=== PATIENT | male | born 1950 | race African-American/Black ===

== ENCOUNTER 2018-12-19 11:07 | Observation (INO) | payer MEDICARE, OTHER ==
[2018-12-19] MEDS ORDERED: ASPIRIN 81 MG CHEWABLE TABLET ONE (11:42)
[2018-12-19] MEDS ORDERED: FENTANYL CITR 100 MCG/2 ML ONE (11:42)
[2018-12-19] MEDS ORDERED: ONDANSETRON 4 MG/2 ML VIAL ONE (11:42)
[2018-12-19] MEDS ORDERED: NITROGLYCERIN 0.4 MG/TAB SL ONE (11:43)
[2018-12-19 11:44] LABS: Protime INR 1.08
[2018-12-19 11:46] LABS: Absolute Lymphocytes (CBC) 2.4 K/uL (0.7-4.9); Absolute Monocytes 0.8 K/uL (0.1-1.3); Absolute Neutrophil 7.5 K/uL (1.8-8.0); Basophils % 0.6 % (0-1.3); Eosinophils % 1.5 % (0-4.4); Hematocrit 44.4 % (39.6-49.0); MPV 7.3 fL (7.6-11.3); Monocytes % 7.6 % (3.3-12.3); RBC Red Blood Cell Count 5.07 M/uL (4.33-5.43)
--- NOTE | 2018-12-19 11:51 | RAD REPORT ---
EXAM DESCRIPTION: RAD - Chest Single View - 12/19/2018 11:43 am CLINICAL HISTORY: CHEST PAIN Chest pain. COMPARISON: CHEST SINGLE VIEW dated 03/20/2011; CHEST SINGLE VIEW dated 03/19/2011; CHEST PA AND LAT 2 VIEW dated 06/10/2004 FINDINGS: Portable technique limits examination quality. Mild interstitial pulmonary edema is present. The heart is normal in size. No displaced fractures.
[2018-12-19 12:04] LABS: ALT/SGPT 33 U/L (12-78); AST/SGOT 24 U/L (15-37); Albumin 3.6 g/dL (3.4-5.0); Alkaline Phosphatase 73 U/L (45-117); BUN Blood Urea Nitrogen 12 mg/dL (7-18); Bicarbonate 28 mmol/L (21-32); Bilirubin Direct 0.2 mg/dL (0-0.2); Bilirubin Total 0.8 mg/dL (0.2-1.0); Glucose Level 118 mg/dL (74-106); Magnesium 2.1 mg/dL (1.8-2.4); NT PRO-BNP 102 pg/mL (<125); Potassium 3.9 mmol/L (3.5-5.1); Protein, Total 7.8 g/dL (6.4-8.2); Sodium Level 140 mmol/L (136-145); Troponin (Emerg Dept Use Only) < 0.02 ng/mL (0.0-0.045)
--- NOTE | 2018-12-19 12:33 | RAD REPORT ---
EXAM DESCRIPTION: CT - Chest For Pe Angio - 12/19/2018 12:27 pm CLINICAL HISTORY: Chest pain. Chest pain;Dyspnea COMPARISON: No comparisons TECHNIQUE: CT angiogram of the pulmonary arteries was performed with MIP. All CT scans are performed using dose optimization technique as appropriate and may include automated exposure control or mA/KV adjustment according to patient size. FINDINGS: No evidence of pulmonary thromboembolism. No acute aortic finding demonstrated. The lungs are clear. No significant pericardial or pleural fluid. No concerning bony finding. IMPRESSION: No evidence of pulmonary thromboembolism. No acute lung findings.
[2018-12-19] MEDS ORDERED: PROMETHAZINE 25 MG/ML VIAL ONE (12:55)
--- NOTE | 2018-12-19 13:12 | RAD REPORT ---
EXAM DESCRIPTION: CT - Head Brain Wo Cont - 12/19/2018 1:04 pm CLINICAL HISTORY: DIZZINESS Headache, drowsiness COMPARISON: Head Brain Wo Cont dated 07/22/2017 TECHNIQUE: All CT scans are performed using dose optimization technique as appropriate and may inclu de automated exposure control or mA/KV adjustment according to patient size. FINDINGS: Intravascular contrast is noted from recent CT chest study, significantly limiting quality of study in detection of subarachnoid blood. Within this limitation, no hemorrhage, hydrocephalus or extra-axial fluid collection is suspected.No areas of brain edema or evidence of midline shift. The paranasal sinuses and mastoids are clear. The calvarium is intact. IMPRESSION: No acute intracranial abnormality is suspected within the above detailed limitations.
--- NOTE | 2018-12-19 13:13 | EDPHYS ---
Physician Documentation [facility] Name: Franck Espana Sr Age: 68 yrs Sex: Male : 1950 Arrival Date: 12/19/2018 Time: 11:11 Bed 5 Private MD: Jean Pierre Rincon T ED Physician Shayne Ngo HPI: 12/19 12:22 This 68 yrs old Black Male presents to ER via Ambulatory with complaints of Chest Pain, jr8 Arm Pain. 12:22 The patient or guardian reports chest pain that is located primarily in the anterior jr8 chest wall, left. Onset: acutely, yesterday. The pain radiates to the left arm. Associated signs and symptoms: Pertinent positives: nausea. The chest pain is described as stabbing. Duration: The patient or guardian reports a single episode, that is still ongoing. Modifying factors: The symptoms are alleviated by nothing. the symptoms are aggravated by nothing. Severity of pain: At its worst the pain was moderate in the emergency department the pain is unchanged. The patient has not experienced similar symptoms in the past. The patient has not recently seen a physician. Historical: - Allergies: 11:27 No Known Allergies; bp - Home Meds: 11:27 Cardizem Oral [Active]; bp - PMHx: 11:27 hiatal hernia; Hypertension; bp - Immunization history:: Adult Immunizations up to date. - Social history:: Smoking status: Patient/guardian denies using tobacco. - Ebola Screening: : Patient negative for fever greater than or equal to 101.5 degrees Fahrenheit, and additional compatible Ebola Virus Disease symptoms Patient denies exposure to infectious person Patient denies travel to an Ebola-affected area in the 21 days before illness onset No symptoms or risks identified at this time. ROS: 12:22 Eyes: Negative for injury, pain, redness, and discharge, ENT: Negative for injury, jr8 pain, and discharge, Neck: Negative for injury, pain, and swelling, Respiratory: Negative for shortness of breath, cough, wheezing, and pleuritic chest pain, Abdomen/GI: Negative for abdominal pain, nausea, vomiting, diarrhea, and constipation, Back: Negative for injury and pain, MS/Extremity: Negative for injury and deformity, Skin: Negative for injury, rash, and discoloration, Neuro: Negative for headache, weakness, numbness, tingling, and seizure. 12:22 Cardiovascular: Positive for chest pain, Negative for edema, orthopnea, palpitations, paroxysmal nocturnal dyspnea. Exam: 12:22 Head/Face: Normocephalic, atraumatic. Eyes: Pupils equal round and reactive to light, jr8 extra-ocular motions intact. Lids and lashes normal. Conjunctiva and sclera are non-icteric and not injected. Cornea within normal limits. Periorbital areas with no swelling, redness, or edema. ENT: Nares patent. No nasal discharge, no septal abnormalities noted. Tympanic membranes are normal and external auditory canals are clear. Oropharynx with no redness, swelling, or masses, exudates, or evidence of obstruction, uvula midline. Mucous membranes moist. Neck: Trachea midline, no thyromegaly or masses palpated, and no cervical lymphadenopathy. Supple, full range of motion without nuchal rigidity, or vertebral point tenderness. No Meningismus. Chest/axilla: Normal chest wall appearance and motion. Nontender with no deformity. No lesions are appreciated. Cardiovascular: Regular rate and rhythm with a normal S1 and S2. No gallops, murmurs, or rubs. Normal PMI, no JVD. No pulse deficits. Respiratory: Lungs have equal breath sounds bilaterally, clear to auscultation and percussion. No rales, rhonchi or wheezes noted. No increased work of breathing, no retractions or nasal flaring. Abdomen/GI: Soft, non-tender, with normal bowel sounds. No distension or tympany. No guarding or rebound. No evidence of tenderness throughout. Back: No spinal tenderness. No costovertebral tenderness. Full range of motion. Skin: Warm, dry with normal turgor. Normal color with no rashes, no lesions, and no evidence of cellulitis. MS/ Extremity: Pulses equal, no cyanosis. Neurovascular intact. Full, normal range of motion. Neuro: Awake and alert, GCS 15, oriented to person, place, time, and situation. Cranial nerves II-XII grossly intact. Motor strength 5/5 in all extremities. Sensory grossly intact. Cerebellar exam normal. Normal gait. 12:22 ECG was reviewed by the Attending Physician. Vital Signs: 11:27 BP 146 / 101; Pulse 65; Resp 16; Temp 98; Pulse Ox 96% ; Weight 132.45 kg; Height 5 ft. bp 11 in. (180.34 cm); 11:59 BP 139 / 101; Pulse 77; Resp 18; Pulse Ox 95% on R/A; hj 12:44 BP 158 / 96; Pulse 65; Resp 18; Pulse Ox 94% on R/A; hj 13:28 BP 163 / 95; Pulse 73; Resp 18; Pulse Ox 100% on 2 lpm NC; hj 13:38 BP 143 / 99; Pulse 72; Resp 18; Pulse Ox 100% on 2 lpm NC; hj 14:25 BP 155 / 90; Pulse 73; Resp 18; Pulse Ox 96% on 2 lpm NC; hj 11:27 Body Mass Index 40.73 (132.45 kg, 180.34 cm) bp MDM: 11:14 Patient medically screened. jr8 13:09 The patient was given aspirin in the Emergency Department. Data reviewed: vital signs, jr8 nurses notes, lab test result(s), EKG, radiologic studies, CT scan, plain films. Data interpreted: Pulse oximetry: on room air is 96 %. Interpretation: normal. Counseling: I had a detailed discussion with the patient and/or guardian regarding: the historical points, exam findings, and any diagnostic results supporting the discharge/admit diagnosis, lab results, radiology results, the need for further work-up and treatment in the hospital. Physician consultation: Grayson Vizcarra MD was called at 13:12, was contacted at 13:12, regarding admission, to the telemetry unit. consult, patient's condition, and will see patient in ED. 13:13 ED course: Still unable to reproduce chest pain that patient was having. No abdominal jr8 tenderness noted as well. Patient had vomited twice and still looks uncomfortable but stated that he feels better. Recommended observation in hospital since we cannot fully r/o cardiac causes at this point. Patient good with this . 12/19 11:15 Order name: Basic Metabolic Panel; Complete Time: 12:11 jr8 12/19 11:15 Order name: CBC with Diff; Complete Time: 12:11 jr8 12/19 11:15 Order name: LFT's; Complete Time: 12:11 jr8 12/19 11:15 Order name: Magnesium; Complete Time: 12:11 jr8 12/19 11:15 Order name: NT PRO-BNP; Complete Time: 12:12/19 11:15 Order name: PT-INR; Complete Time: 12:12/19 11:15 Order name: Troponin (emerg Dept Use Only); Complete Time: 12:12/19 11:15 Order name: XRAY Chest (1 view); Complete Time: 12:12/19 12:12 Order name: CT Chest For PE Angio; Complete Time: 12:34 12/19 12:42 Order name: CT Head Brain wo Cont; Complete Time: 13:14 12/19 11:15 Order name: EKG; Complete Time: 11:12/19 11:15 Order name: Cardiac monitoring; Complete Time: 12/19 11:15 Order name: EKG - Nurse/Tech; Complete Time: 12/19 11:15 Order name: IV Saline Lock; Complete Time: :12/19 11:15 Order name: Labs collected and sent; Complete Time: 12/19 11:15 Order name: O2 Per Protocol; Complete Time: 12/19 11:15 Order name: O2 Sat Monitoring; Complete Time: EC:22 Rate is 63 beats/min. Rhythm is regular, Normal Sinus Rhythm. QRS [place] is Normal. [place] jr8 interval is normal at 174 msec. QRS interval is normal at 92 msec. QT interval is normal at 425 msec. No Q waves. T waves are Normal. No ST changes noted. Clinical impression: Normal ECG and No evidence of ischemia. Interpreted by me. Reviewed by me. Administered Medications: 11: Drug: Aspirin Chewable Tablet 324 mg Route: PO; hj 11:57 Follow up: Response: No adverse reaction hj 11: Drug: fentaNYL (PF) 25 mcg Route: IVP; Site: right forearm; hj 11:57 Follow up: Response: No adverse reaction hj 11: Drug: Zofran 4 mg Route: IVP; Site: right forearm; hj 11:57 Follow up: Response: No adverse reaction; Nausea is decreased hj 11: Drug: Nitroglycerin 0.4 mg Route: Sublingual; hj 11:57 Follow up: Response: No adverse reaction; Pain is decreased hj 12:47 Drug: Promethazine 12.5 mg Route: IVP; Site: left antecubital; bp 13:27 Follow up: Response: No adverse reaction; Nausea is decreased hj Disposition: 12/19/18 13:13 Hospitalization ordered by Grayson Vizcarra for Observation. Preliminary diagnosis is Chest pain, unspecified. - Bed requested for Telemetry/MedSurg (observation). - Status is Observation. hj - Condition is Stable. - Problem is new. - Symptoms have improved. UTI on Admission? No Addendum: 12/22/2018 00:12 Co-signature as Attending Physician, Shayne Ngo MD. g s Signatures: Dispatcher [employer] EDMS Servando Borrero PA PA jr8 Karl Machuca, RN RN Shayne Laureano MD MD gs Peltier, Brian, RN RN Roselia Yee Corrections: (The following items were deleted from the chart) 12/19 14:23 13:13 Hospitalization Ordered by Grayson Vizcarra MD for Observation. Preliminary diagnosis eb is Chest pain, unspecified. Bed requested for Telemetry/MedSurg (observation). Status is Observation. Condition is Stable. Problem is new. Symptoms have improved. UTI on Admission? No. jr8 15:04 14:23 12/19/2018 13:13 Hospitalization Ordered by Grayson Vizcarra MD for Observation. hj Preliminary diagnosis is Chest pain, unspecified. Bed requested for Telemetry/MedSurg (observation). Status is Observation. Condition is Stable. Problem is new. Symptoms have improved. UTI on Admission? No. eb
--- NOTE | 2018-12-19 13:13 | ER ---
Nurse's Notes [facility] Name: Franck Espana Sr Age: 68 yrs Sex: Male : 1950 Arrival Date: 12/19/2018 Time: 11:11 Bed 5 Private MD: Jean Pierre Rincon T Diagnosis: Chest pain, unspecified Presentation: 12/19 11:15 Presenting complaint: Patient states: LEFT SHOULDER PAIN, LEFT CHEST PAIN, LEFT ARM bp PAIN WITH NAUSEA/VOMITING SINCE Y/D AM. Transition of care: patient was not received from another setting of care. Onset of symptoms was December 18, 2018 at 08:00. Risk Assessment: Do you want to hurt yourself or someone else? Patient reports no desire to harm self or others. Initial Sepsis Screen: Does the patient meet any 2 criteria? No. Patient's initial sepsis screen is negative. Does the patient have a suspected source of infection? No. Patient's initial sepsis screen is negative. Care prior to arrival: None. 11:15 Method Of Arrival: Ambulatory bp 11:15 Acuity: DELORIS 2 bp Triage Assessment: 11:27 General: Appears in no apparent distress. uncomfortable, Behavior is cooperative, bp appropriate for age, anxious. Pain: Complains of pain in left trapezius, left scapular area, left supraclavicular area, left clavicle, anterior aspect of left upper chest, left breast and anterior aspect of left shoulder. EENT: No deficits noted. Neuro: Level of Consciousness is awake, alert, obeys commands, Oriented to person, place, time, situation, Appropriate for age. Cardiovascular: Rhythm is sinus rhythm. Respiratory: No deficits noted. Airway is patent Respiratory effort is even, unlabored, Respiratory pattern is regular, symmetrical. GI: Reports nausea, vomiting. : No signs and/or symptoms were reported regarding the genitourinary system. Derm: No deficits noted. Musculoskeletal: Circulation, motion, and sensation intact. Range of motion: intact in all extremities. Historical: - Allergies: 11:27 No Known Allergies; bp - Home Meds: 11: Cardizem Oral [Active]; bp - PMHx: 11:27 hiatal hernia; Hypertension; bp - Immunization history:: Adult Immunizations up to date. - Social history:: Smoking status: Patient/guardian denies using tobacco. - Ebola Screening: : Patient negative for fever greater than or equal to 101.5 degrees Fahrenheit, and additional compatible Ebola Virus Disease symptoms Patient denies exposure to infectious person Patient denies travel to an Ebola-affected area in the 21 days before illness onset No symptoms or risks identified at this time. Screenin:30 Abuse screen: Denies threats or abuse. Denies injuries from another. Nutritional bp screening: No deficits noted. Tuberculosis screening: No symptoms or risk factors identified. Fall Risk None identified. Assessment: 11:30 General: SEE TRIAGE NOTE. bp 11:30 Pain: Pain radiates to left arm and back and anterior aspect of left shoulder and left hj breast Pain began 1 day ago. 12:57 Reassessment: PT TO CT WITH RN INTAKE. bp 13:28 Reassessment: Patient and/or family updated on plan of care and expected duration. Pain hj level reassessed. Patient is alert, oriented x 3, equal unlabored respirations, skin warm/dry/pink. awaiting room placement;. Vital Signs: 11:27 BP 146 / 101; Pulse 65; Resp 16; Temp 98; Pulse Ox 96% ; Weight 132.45 kg; Height 5 ft. bp 11 in. (180.34 cm); 11:59 BP 139 / 101; Pulse 77; Resp 18; Pulse Ox 95% on R/A; hj 12:44 BP 158 / 96; Pulse 65; Resp 18; Pulse Ox 94% on R/A; hj 13:28 BP 163 / 95; Pulse 73; Resp 18; Pulse Ox 100% on 2 lpm NC; hj 13:38 BP 143 / 99; Pulse 72; Resp 18; Pulse Ox 100% on 2 lpm NC; hj 14:25 BP 155 / 90; Pulse 73; Resp 18; Pulse Ox 96% on 2 lpm NC; hj 11:27 Body Mass Index 40.73 (132.45 kg, 180.34 cm) bp ED Course: 11:11 Patient arrived in ED. mr 11:11 Jean Pierre Rincon MD is Private Physician. mr 11:14 Servando Borrero [facility]. jr8 11:14 Shayne Ngo MD is Attending Physician. jr8 11:19 Karl Machuca, RENAY is Primary Nurse. hj 11:26 Triage completed. bp 11:27 Arm band placed on. bp 11:30 Patient has correct armband on for positive identification. Placed in gown. Bed in low bp position. Call light in reach. Side rails up X2. quality assurance monitor body on. Pulse ox on. NIBP on. 11:30 Inserted saline lock: 22 gauge in right forearm, using aseptic technique. Blood bp collected. Patient maintains SpO2 saturation greater than 95% on room air. 11:31 EKG done, by computer tech. reviewed by Servando ESPINOSA. at1 11:38 X-ray completed. Portable x-ray completed in exam room. jr1 11:43 XRAY Chest (1 view) In Process Unspecified. EDMS 12:27 CT Chest For PE Angio In Process Unspecified. EDMS 13:03 CT Head Brain wo Cont In Process Unspecified. EDMS 13:12 Grayson Vizcarra MD is Hospitalizing Provider. jr8 15:03 No provider procedures requiring assistance completed. Patient admitted, IV remains in hj place. intact. Administered Medications: 11:27 Drug: Aspirin Chewable Tablet 324 mg Route: PO; hj 11:57 Follow up: Response: No adverse reaction hj 11:27 Drug: fentaNYL (PF) 25 mcg Route: IVP; Site: right forearm; hj 11:57 Follow up: Response: No adverse reaction hj 11:27 Drug: Zofran 4 mg Route: IVP; Site: right forearm; hj 11:57 Follow up: Response: No adverse reaction; Nausea is decreased hj 11:27 Drug: Nitroglycerin 0.4 mg Route: Sublingual; hj 11:57 Follow up: Response: No adverse reaction; Pain is decreased hj 12:47 Drug: Promethazine 12.5 mg Route: IVP; Site: left antecubital; bp 13:27 Follow up: Response: No adverse reaction; Nausea is decreased hj Outcome: 13:13 Decision to Hospitalize by Provider. jr8 15:04 Admitted to Tele accompanied by tech, family with patient, via wheelchair, room 416, hj with chart, Report called to RENAY Hugo 15:04 Condition: stable 15:04 Instructed on the need for admit, Demonstrated understanding of instructions, follow-up care. 15:04 Patient left the ED. hj Signatures: Dispatcher [employer] EDSD Erlin Megan DiazMilli jr1 Servando Borrero PA PA jr8 [place], pbx teacher EKG Tat1 Karl Machuca RN RN Nasim Estes RN RN bp Corrections: (The following items were deleted from the chart) 13:39 12:44 BP 158 / 96; Pulse 65bpm; Resp 18bpm; Pulse Ox 96% RA; [facility] 13:39 13:28 BP 163 / 95; Pulse 73bpm; Resp 18bpm; Pulse Ox 100% RA; [facility]
--- NOTE | 2018-12-19 13:27 | EKG ---
Test Date: 2018-12-19 Test Time: 11:16:15 Business Education Professor: TANIA MEASUREMENT RESULTS: Intervals: Rate: 63 WV: 174 QRSD: 92 QT: 416 QTc: 425 [place]: P: 46 WV: 174 QRS: 42 T: 40 INTERPRETIVE STATEMENTS: Normal sinus rhythm Normal ECG Compared to ECG 03/19/2011 08:56:26 Sinus bradycardia no longer present Early repolarization no longer present Electronically Signed On 12-19-18 12:40:08 CDT by Randolph Thayer
[2018-12-19] MEDS ORDERED: NITROGLYCERIN 0.4 MG/TAB SL PRN (14:56)
[2018-12-19] MEDS ORDERED: ACETAMINOPHEN 500 MG TAB PO PRN (14:56)
[2018-12-19 15:31] VITALS: BMI 36.1
[2018-12-19] MEDS: ENOXAPARIN 40 MG/0.4 ML SQ SCH (16:00)
[2018-12-19] MEDS ORDERED: PNEUMOCOCCAL VACCINE 0.5 ML IMVAC ONE (16:00)
[2018-12-19] MEDS: MORPHINE 2 MG/ML SYR IV PRN ×2 (16:05→19:54)
--- NOTE | 2018-12-20 01:43 | HP ---
Date of Admission: 12/19/2018 Chief Complaint: Chest pain. Primary Care Physician: Jean Pierre Rincon MD. Code Status: Full. History Of Present Illness: The patient is a 68-year-old male with past medical history of hypertens ion, obesity, who was in his usual state of health until 2 nights prior to admission when the patient was woken up by chest pain which was left-sided, radiating to his neck, jaw, and left arm. The vanessa ent states he did have some episodes of nausea and vomiting. No diaphoresis or palpitations. The pa tiemadison also reported some numbness and tingling in his left arm. The patient denies any trauma to his arm, shoulder, or chest. No point tenderness. The patient denies any strenuous activity prior to t he episode of chest pain. The patient states that he was unable to get up and walk around. His symp toms have been progressively getting worse. Due to the constant nature of his moderate symptoms, he came into the ER for further evaluation. Upon arrival, his vital signs were stable. His workup init ially revealed a negative cardiac troponin level. EKG did not show any acute changes. White blood c ell count was normal. Imaging studies ruled out any PE. Head CT scan was also done which was negati ve. The patient was then referred for admission. When seen in the ER, he was awake, alert, oriented x3, in some mild distress. Past Medical History: Hypertension. Past Surgical History: The patient had bilateral knee surgeries for torn cartilage and right wrist s urgery. Allergies: NO KNOWN DRUG ALLERGIES. Medications: Cardizem 60 mg daily. Social History: The patient denies any tobacco use. Drinks alcohol socially. No illicit drug use. The patient is active and independent in his activities of daily living. Family History: Positive for diabetes, hypertension, and mother had cancer. Review of Systems: An 11-point system reviewed, negative except as per HPI. Physical Examination: Vital Signs: Blood pressure 146/101, pulse 65, respirations 16, temperature 98, O2 96% on room air. General: Awake, alert, oriented x3, in some mild distress. Elderly male. HEENT: Normocephalic, atraumatic. PERRLA, EOMI. Moist mucous membranes. Oropharynx is clear. Con junctiva is anicteric. Neck: Supple. No JVD. Trachea midline. CV: S1, S2. Regular rate and rhythm. Peripheral pulses present. Respiratory: Clear to auscultation bilaterally. No wheezing or stridor. No use of accessory muscle s. Gastrointestinal: Abdomen is soft, nontender, nondistended. Positive bowel sounds. No guarding or rigidity. Extremities: No clubbing, cyanosis, or edema. No calf tenderness. Neuro: Cranial nerves 2 through 12 intact grossly. No focal neurological deficit. Speech is normal . Sensation is intact to light touch in bilateral upper and lower extremities. Strength is 5/5 in b ilateral upper and lower extremities. Musculoskeletal: No point tenderness. No decreased range of motion of bilateral upper extremities a nd lower extremities. Skin: No rashes. Normal skin turgor. Psych: Mood is okay. Affect is full. Insight and judgment are good. Laboratory Data: INR 1.08. WBC 10.9, H and H 14.8 and 44.4, platelets 225. Sodium 140, potassium 3 .9, chloride 106, CO2 2of 8, BUN 12, creatinine 0.88, glucose 118, calcium 8.4, magnesium 2.1. Tropo pearl less than 0.02. WBC 10.9, H and H 14.8 and 44.4, platelets 225. Imaging Studies: CT angio chest shows no evidence of PE, no acute lung findings. Head CT scans, neg ative for any acute hemorrhage, no acute intracranial abnormality. EKG shows rate of 63 and normal s inus rhythm. Chest x-ray, reviewed personally, shows mild interstitial pulmonary edema present. Hea rt is normal in size. No displaced fractures. Assessment And Plan: A 68-year-old male with 1.Chest pain. The patient had left-sided chest pain with radiation to the left arm, jaw, and neck. Has history of hypertension, fairly well controlled. Does not smoke. No history of premature coron emily artery disease. The patient is still having pain which did improve with nitroglycerin and aspiri n. We will consult Cardiology, obtain echocardiogram, and rule out acute coronary syndrome. 2.Obesity. 3.Essential hypertension, stable. 4.Numbness and tingling of the left upper extremity, may be related to cervical radiculopathy. 5.Hypocalcemia. We will replace and monitor. 6.Deep vein thrombosis prophylaxis with Lovenox. Plan: Admit the patient to Med-Surg, place as observation. KAYLA Voice ID: [id number]
[2018-12-20] MEDS: MORPHINE 2 MG/ML SYR IV PRN ×2 (04:19→10:30)
[2018-12-20 06:11] LABS: Absolute Lymphocytes (CBC) 1.8 K/uL (0.7-4.9); Absolute Monocytes 0.9 K/uL (0.1-1.3); Absolute Neutrophil 6.6 K/uL (1.8-8.0); Basophils % 0.4 % (0-1.3); Eosinophils % 2.6 % (0-4.4); Hematocrit 42.6 % (39.6-49.0); Lymphocytes % 18.9 % (15.3-44.8); MPV 7.6 fL (7.6-11.3); Monocytes % 9.1 % (3.3-12.3)
[2018-12-20 06:30] LABS: BUN Blood Urea Nitrogen 15 mg/dL (7-18); Bicarbonate 28 mmol/L (21-32); Glucose Level 115 mg/dL (74-106); HDL Cholesterol 52 mg/dL (40-60); LDL Cholesterol, Calculated 91 (<130); Potassium 3.8 mmol/L (3.5-5.1); Sodium Level 139 mmol/L (136-145)
[2018-12-20] MEDS ORDERED: ASPIRIN EC 81 MG TAB PO SCH (09:00)
[2018-12-20] MEDS ORDERED: CANDESARTAN CILEXETIL 16 MG PO SCH (09:00)
[2018-12-20] MEDS ORDERED: METOPROLOL TAR 25 MG TAB PO SCH (09:00)
[2018-12-20] MEDS ORDERED: VALSARTAN 80 MG TAB PO SCH (09:00)
[2018-12-20] MEDS ORDERED: LISINOPRIL 10 MG TAB PO SCH (09:00)
[2018-12-20] MEDS: ENOXAPARIN 40 MG/0.4 ML SQ SCH (09:59)
[2018-12-20 11:42] VITALS: BP 122/81; TEMP 98.1
--- NOTE | 2018-12-20 11:42 | RAD REPORT ---
EXAM DESCRIPTION: RAD - C Spine Ap/Lat - 12/20/2018 11:31 am CLINICAL HISTORY: Neck pain FINDINGS: Mild posterior subluxation C4 on C5 with disc space narrowing and osteophytes. No fracture seen. The remainder of the exam unremarkable
[2018-12-20 12:22] VITALS: O2SAT 93
--- NOTE | 2018-12-20 15:48 | ECHO ---
HEIGHT: 6 ft 1 in WEIGHT: 274 lb 0 oz DATE OF STUDY: 12/20/[address]: Grayson Vizcarra MD 2-DIMENSIONAL: YES M.MODE: YES DOPPLER: YES COLOR FLOW: YES TDS: PORTABLE: DEFINITY: BUBBLE STUDY: DIAGNOSIS: CHEST PAIN CARDIAC HISTORY: CATHERIZATION: NO SURGERY: NO PROSTHETIC VALVE: NO PACEMAKER: NO MEASUREMENTS (cm) DIASTOLIC (NORMALS) SYSTOLIC (NORMALS) IVSd 1.1 (0.6-1.2) LA Diam 4.1 (1.9-4.0) LVEF 52% LVIDd 4.2 (3.5-5.7) LVIDs 3.1 (2.0-3.5) %FS 27% LVPWd 1.1 (0.6-1.2) Ao Diam 2.9 (2.0-3.7) 2 DIMENSIONAL ASSESSMENT: RIGHT ATRIUM: NORMAL LEFT ATRIUM: NORMAL RIGHT VENTRICLE: NORMAL LEFT VENTRICLE: NORMAL TRICUSPID VALVE: NORMAL MITRAL VALVE: NORMAL PULMONIC VALVE: NORMAL AORTIC VALVE: NORMAL PERICARDIAL EFFUSION: NONE AORTIC ROOT: NORMAL LEFT VENTRICULAR WALL MOTION: NORMAL DOPPLER/COLOR FLOW: IMPAIRED LEFT VENTRICULAR RELAXATION. COMMENTS: NORMAL TWO DIMENSIONAL ECHOCARDIOGRAM. IMPAIRED LEFT VENTRICULAR RELAXATION. TECHNOLOGIST: MINOO SUAZO
--- NOTE | 2018-12-21 11:03 | CON ---
Date of Consultation: 12/20/2018 Reason For Consultation: Chest pain and arm pain. History Of Present Illness: Mr. Espana is a 68-year-old black male, fairly healthy in general, has a history of hypertension, for which he takes candesartan only. Came in with left chest pain, left arm pain with numbness in his fingers on the left side, that has been going on for approximately a week without any nausea, vomiting, diaphoresis, PND, orthopnea, pedal edema, palpitations, or syncope. Past Medical History: Includes hypertension. Allergies: NONE. Medications: Include candesartan. Review of Systems: Negative. Family History: Negative. Physical Examination: General: He is very pleasant, in no acute distress, continues however to have some left arm pain and left hand numbness. HEENT: Negative. Neck: Supple without any bruit, lymphadenopathy, JVD, or thyromegaly. Chest: Clear to auscultation and percussion. Cardiac: Regular rhythm and rate without any murmurs, gallops, or rubs. Abdomen: Benign. Extremities: No clubbing, cyanosis, or edema. Data Reviewed: His diagnostic data were all within normal limit including a lipid profile. EKG was normal. CT angiogram was normal. CT of his head was normal. Chest x-ray showed possible interstiti al edema. Impression And Plan: Mr. Espana is having atypical chest pain. He is 68-year-old, hypertensive and c ertainly at risk for heart disease. Chest x-ray showed possible mild interstitial edema. I think an echocardiogram is indicated and is pending today. I believe his symptoms however are probably most likely secondary to cervical spondylosis. His symptoms have been going on for 5 days and yet he stil l have a normal EKG and normal troponin. His blood pressure is fairly well controlled. I would cont inue his present regimen and check the echocardiogram. I think if this is normal, he can probably go home. He probably should have a carotid Doppler eventually and a stress test as an outpatient, and he probably should have an MRI of the cervical spine as an outpatient as well if his symptoms persist . I will discuss the case with Dr. Vizcarra. TRUDI/ROBER Voice ID: [id number] Report ID: [id number]
--- NOTE | 2018-12-21 12:03 | DS ---
Date of Discharge: 12/20/2018 Discharge Diagnoses: 1.Chest pain. Acute coronary syndrome ruled out. 2.Obesity, BMI 36.1. 3.Essential hypertension, stable. 4.Numbness and tingling of the left upper extremity secondary to cervical radiculopathy. 5.Hypocalcemia. Consultants: Dr. Marvin with Cardiology. Procedures: None. 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 The pat ient had come in with left-sided pain including into his chest, left arm, also reported some tingling in his arm. The patient did use a chainsaw several days prior, chopping up a tree. The patient was admitted to the hospital to rule out acute coronary syndrome. His cardiac enzymes were negative. H is lipid panel was normal. He was seen by Dr. Marvin who did not recommend any further workup. Ech ocardiogram was also obtained. The patient had a cervical C-spine x-ray, which showed subluxation C4 on C5 with disk space narrowing and osteophytes. No fractures. Likely cause of his left arm pain a nd numbness was a cervical radiculopathy. The patient will be started on trial of gabapentin and to have the dose adjusted as necessary. He was counseled not to drive or operate any heavy machinery wh ile on this medication. The patient will need to follow up with Dr. Patel with Neurology and get an MRI of his cervical spine. Follow up with table tender sludge, Dr. Marvin, in 2 to 4 weeks. Follow up with primary care physician in 2 to 3 days. Diet: Heart healthy. Activity: No driving or operating heavy machinery while on gabapentin. Medications: As per medication reconciliation list. Physical Examination: General: Awake, alert, oriented x3 without any acute distress. An obese male. CV: S1, S2. No murmurs. Respiratory: Moving air well bilaterally. Abdomen: Soft, nontender, nondistended. Positive bowel sounds. Extremities: No clubbing, cyanosis, or edema. Neurologic: Nonfocal. Does report some tingling in his left upper extremity. Musculoskeletal: No decreased range of motion. No tenderness to palpation of the cervical spine. SA/MODL Voice ID: [id number] Report ID: [id number]
== END 2018-12-20 14:21 | disposition home or self-care (01) ==
LOC: ER 11:07 → ERHOLD 14:10 → 4TH 14:46
PROVIDERS: ADMIT Family Medicine; ATTEND Family Medicine
DX: R07.9 Chest pain, unspecified (principal); E66.9 Obesity, unspecified; Z68.36 Body mass index [BMI] 36.0-36.9, adult; I10 Essential (primary) hypertension; M54.12 Radiculopathy, cervical region; E83.51 Hypocalcemia
CPT/HCPCS: 93005; 93306; 85025 ×2; 80048 ×2; 36415; 83735; 85610; 80061; 80076; 84484 ×4; 83880; 70450; 71275; 71045; 72040; 94760 ×3; 96375; 96374; 99285; Q9967; J2550; J1650 ×2; J3010; J2270 ×4; J2405; G0378 ×2

== ENCOUNTER 2020-04-05 17:07 | Inpatient (IN) | payer OTHER, MEDICARE ==
--- OUTSIDE RECORDS SUMMARY | 2020-04-05 17:09 | XMS REPORT | Summary of Care ---
:1950 Author Organization [facility] Address [address] [place] [address] Care Team Providers Name Role Phone RinconJean Pierre Miguel Primary Care Provider Reason for Visit Reason Comments Congestion Diarrhea HAVE NO APPETITE Headache Encounter Details Date Type Department Care Team Description 03/31/2020 Laboratory Only [facility] Family Tra Bronson, ANTHONY [address] [place] [address] Suspected Covid-19 [facility] Lab, Adc Fam Pob I Virus Infection [address] [place] [address] (Primary D x) [place] [address] Allergies No Known Allergiesdocumented as of this encounter (statuses as of 03/31/2020) Medications Medication Sig Dispensed Refills Start Date End Date Status gabapentin 300 mg capsule 0 12/20/2018 Active candesartan 16 mg tablet 0 11/08/2018 Active documented as of this encounter (statuses as of 03/31/2020) Active Problems No known active problemsdocumented as of this encounter (statuses as of 03/31/2020) Social History Tobacco Use Types Packs/Day Years Used Date Never Smoker Smokeless Tobacco: Never Used Alcohol Use Drinks/Week oz/Week Comments Yes 1 Shots of liquor 1.0 Sex Assigned at Date Recorded Not on file Job Start Date Occupation Industry Not on file Not on file Not on file Travel History Travel Start Travel End No recent travel history available. documented as of this encounter Last Filed Vital Signs Not on filedocumented in this encounter Plan of Treatment Name Type Priority Associated Diagnoses Order S leann COVID-19 (PCR MOLECULAR LAB Routine Suspected Covid-1 9 Virus Expected: 03/31/2020, TESTING) Infection Expires: 2020 Health Maintenance Due Date Last Done Comments HEPATITIS C (HCV) SCREEN 1950 DTaP,Tdap,and Td Vaccines (1 - Tdap) 1962 Depression Screening 1963 COLONOSCOPY 2001 Zoster Recombinant Vaccine (SHINGRIX) (1 of 2) 2001 Medicare Wellness Visit 2016 PNEUMOCOCCAL VACCINES 65+ (1 of 2 - PCV13) 2016 INFLUENZA VACCINE (#1) 2020 documented as of this encounter Implants Implanted Type Area Toe Closing Machine Tender Device Shelf Model / Identifier Expiration Date Ser ial / Lot Prestige Lp Cervical Disc SPINE N/A: Neck Medtronic 11/0 10/2025 [id number] / Implanted: Qty: 1 on 01/30/2019 by Mal Mejia MD at [facility] ([facility]) 0 / [id number] documented as of this encounter Results Not on filedocumented in this encounter Visit Diagnoses Diagnosis Suspected Covid-19 Virus Infection - [facility] documented in this encounter Additional Health Concerns Infection Onset Date Last Indicated Resolved Time COVID-19 Rule Out 03/31/2020 03/31/2020 documented as of this encounter Insurance Payer Benefit Plan / Subscriber ID Effective Phone Address T ype Group Dates MEDICARE MEDICARE PART xxxxxxxxxxx 2016-Pre [phone] [address] edicare A & B sent [id number] [place] [id number] [facility] [id number] 2019-Pre [address] [facility] sent [id number] Supplement MEDICARE [place] SUPPLEMENT [place] [id number] documented as of this encounter
--- OUTSIDE RECORDS SUMMARY | 2020-04-05 17:09 | XMS REPORT | Summary of Care ---
:1950 Author Organization [facility] Address [address] [place] [address] Care Team Providers Name Role Phone Jean Pierre Rincon Primary Care Provider Reason for Visit Reason Comments Exposure LAB Encounter Details Date Type Department Care Team Description 03/26/2020 Laboratory Only [facility] Family Lab, Adc Fam Suspec gilmar Covid-19 [facility] Pob I Virus Infection [address] [place] [address] (Primary D x) [place] [address] Allergies No Known Allergiesdocumented as of this encounter (statuses as of 03/27/2020) Medications Medication Sig Dispensed Refills Start Date End Date Status gabapentin 300 mg capsule 0 12/20/2018 Active candesartan 16 mg tablet 0 11/08/2018 Active documented as of this encounter (statuses as of 03/27/2020) Active Problems No known active problemsdocumented as of this encounter (statuses as of 03/27/2020) Social History Tobacco Use Types Packs/Day Years [...] filedocumented in this encounter Plan of Treatment Health Maintenance Due Date Last Done Comments HEPATITIS C (HCV) SCREEN 1950 DTaP,Tdap,and Td Vaccines (1 - Tdap) 1962 Depression Screening 1963 COLONOSCOPY 2001 Zoster Recombinant Vaccine (SHINGRIX) (1 of 2) 2001 Medicare Wellness Visit 2016 PNEUMOCOCCAL VACCINES 65+ (1 of 2 - PCV13) 2016 INFLUENZA VACCINE (#1) 2020 documented as of this encounter Implants Implanted Type Area Probate Paralegal Device Shelf Model / Identifier Expiration Date Ser ial / Lot Prestige Lp Cervical Disc SPINE N/A: Neck Medtronic 11/0 10/2025 [id number] / Implanted: Qty: 1 on 01/30/2019 by Mal Mejia MD at [facility] ([facility]) 0 [id number] documented as of this encounter Results Not on filedocumented in this encounter Visit Diagnoses Diagnosis Suspected Covid-19 Virus Infection - [facility] documented in this encounter Insurance Payer Benefit Plan / Subscriber ID Effective Phone Address T ype Group Dates MEDICARE MEDICARE PART xxxxxxxxxxx 2020-Pr [phone] [address] edicare A & B esent [id number] [place] [id number] [facility] [id number] 2019-Pre [address] [facility] sent [id number] Supplement MEDICARE [place] SUPPLEMENT [place] [id number] documented as of this encounter
--- OUTSIDE RECORDS SUMMARY | 2020-04-05 17:09 | XMS REPORT | Summary of Care ---
:1950 Author Organization [facility] Address [address] [place] [address] Care Team Providers Name Role Phone Sergey Jean Pierre Miguel Primary Care Provider Reason for Visit Reason Comments Exposure LAB Encounter Details Date Type Department Care Team Description 03/18/2020 Laboratory Only [facility] Family Tra Bronson FNP [address] [place] [address] Suspected Covid-19 [facility] Lab, Adc Fam Pob I Virus Infection [address] [place] [address] (Primary D x) [place] [address] Allergies No Known Allergiesdocumented as of this encounter (statuses as of 03/18/2020) Medications Medication Sig Dispensed Refills Start Date End Date Status gabapentin 300 mg capsule 0 12/20/2018 Active candesartan 16 mg tablet 0 11/08/2018 Active documented as of this encounter (statuses as of 03/18/2020) Active Problems No known active problemsdocumented as of this encounter (statuses as of 03/18/2020) Social History Tobacco Use Types Packs/Day Years [...] Name Type Priority Associated Diagnoses Order S ivanle COVID-19 (PCR MOLECULAR LAB Routine Suspected Covid-1 9 Virus Ordered: 03/18/2020 TESTING) Infection Health Maintenance Due Date Last Done Comments HEPATITIS C (HCV) SCREEN 1950 DTaP,Tdap,and Td Vaccines (1 - Tdap) 1962 Depression Screening 1963 COLONOSCOPY 2001 Zoster Recombinant Vaccine (SHINGRIX) (1 of 2) 2001 Medicare Wellness Visit 2016 PNEUMOCOCCAL VACCINES 65+ (1 of 2 - PCV13) 2016 INFLUENZA VACCINE (#1) 2020 documented as of this encounter Implants Implanted Type Area Materials Handling Coordinator Device Shelf Model / Identifier Expiration Date Ser ial / Lot Prestige Lp Cervical Disc SPINE N/A: Neck Medtronic 11/0 10/2025 [id number] / Implanted: Qty: 1 on 01/30/2019 by Mal Mejia MD at [facility] ([facility]) 0 [id number] documented as of this encounter Results Not on filedocumented in this encounter Visit Diagnoses Diagnosis Suspected Covid-19 Virus Infection - [facility] documented in this encounter Insurance Payer Benefit Plan / Subscriber ID Effective Phone Address T ype Group Dates MEDICARE MEDICARE PART xxxxxxxxxxx 2020-Pr [phone] [address] edicare A & B esent [id number] [place] [id number] [facility] [id number] 2019-Pre [address] [facility] sent [id number] Supplement MEDICARE [place] SUPPLEMENT [place] [id number] documented as of this encounter
--- OUTSIDE RECORDS SUMMARY | 2020-04-05 17:09 | XMS REPORT | Continuity of Care Document ---
:1950 Author Organization [facility] t Address [address] [place] [address] Care Team Providers Name Role Phone Jean Pierre Rincon Attending Clinician Og, Fam Pob I Attending Clinician Unavailable Audie CRUZ Attending Clinician Roberto MELGAR Attending Clinician Problems This patient has no known problems. Allergies, Adverse Reactions, Alerts This patient has no known allergies or adverse reactions. Medications This patient has no known medications. Procedures This patient has no known procedures. Encounters Start End Encounter Admission Attending Care Care Encounter Source Date/Time Date/Time Type Type Clinicians Facility Department ID 2020-04-01 2020-04-01 Telephone Jean Pierre Rincon [id number] 00:00:00 00:00:[id number] [facility] [id number] 2020-03-31 2020-03-31 Laboratory Lab, [facility] [id number] 09:58:50 10:18:50 Only Fam Pob I Health [id number] [place] [id number] Konrad [phone] nal [address] 2020-03-26 2020-03-26 Laboratory Lab, [facility] [id number] 11:40:00 12:00:00 Only Fam Pob I Health [id number] [place] [id number] Professio [phone] nal 0[address] 2020-03-19 2020-03-19 Telephone Audie [facility] [id number] 00:00:00 00:00:00 [facility] [id number] [place] [id number] Professio [phone] nal 044 [address] One 2020-03-18 2020-03-18 Laboratory Lab, [facility] [id number] 14:59:46 15:19:46 Only Fam Pob I Health [id number] [place] [id number] Professio [phone] nal 044 [address] One 2019-04-22 2019-04-22 Office Mal Mejia [facility] [id number] 09:44:07 13:56:18 Visit Health [id number] [place] [id number] [place] [phone] [place] [address] Office Building Results This patient has no known results.
--- OUTSIDE RECORDS SUMMARY | 2020-04-05 17:09 | XMS REPORT | Summary of Care ---
:1950 Author Organization [facility] Address [address] [place] [address] Care Team Providers Name Role Phone Jean Pierre Rincon Primary Care Provider Reason for Visit Reason Comments Results Encounter Details Date Type Department Care Team Description 04/01/2020 Telephone [facility] Jean Pierre Rincon Results [address] [facility] [address] [place] [address] [place], [place] [phone] Allergies No Known Allergiesdocumented as of this encounter (statuses as of 04/01/2020) Medications Medication Sig Dispensed Refills Start Date End Date Status gabapentin 300 mg capsule 0 12/20/2018 Active candesartan 16 mg tablet 0 11/08/2018 Active documented as of this encounter (statuses as of 04/01/2020) Active Problems No known active problemsdocumented as of this encounter (statuses as of 04/01/2020) Social History Tobacco Use Types Packs/Day Years [...] of this encounter Implants Implanted Type Area Mason Helper Device Shelf Model / Identifier Expiration Date Ser ial / Lot Prestige Lp Cervical Disc SPINE N/A: Neck Medtronic 11/0 10/2025 [id number] / Implanted: Qty: 1 on 01/30/2019 by Mal Mejia MD at [facility] ([facility]) 0 [id number] documented as of this encounter Results Not on filedocumented in this encounter Additional Health Concerns Infection Onset Date Last Indicated Resolved Time COVID-19 Confirmed 03/31/2020 03/31/2020 documented as of this encounter Insurance Payer Benefit Plan / Subscriber ID Effective Phone Address T e Group Dates MEDICARE MEDICARE PART xxxxxxxxxxx 2016-Pre [phone] [address] edicare A & B sent [id number] [place] [id number] [facility] [id number] 2019-Pre [address] [facility] sent [id number] Supplement MEDICARE [place] SUPPLEMENT [place] [id number] documented as of this encounter
--- OUTSIDE RECORDS SUMMARY | 2020-04-05 17:09 | XMS REPORT | Summary of Care ---
:1950 Author Organization [facility] Address [address] [place] [address] Care Team Providers Name Role Phone Jean Pierre Rincon Primary Care Provider Reason for Visit Reason Comments Results Encounter Details Date Type Department Care Team Description 03/19/2020 Telephone [facility] Family Medicine Stacey Reynoso FNP Results - [address] [place] [address] [place] [phone] Allergies No Known Allergiesdocumented as of this encounter (statuses as of 03/19/2020) Medications Medication Sig Dispensed Refills Start Date End Date Status gabapentin 300 mg capsule 0 12/20/2018 Active candesartan 16 mg tablet 0 11/08/2018 Active documented as of this encounter (statuses as of 03/19/2020) Active Problems No known active problemsdocumented as of this encounter (statuses as of 03/19/2020) Social History Tobacco Use Types Packs/Day Years [...] of this encounter Implants Implanted Type Area Basket Hand Weaver Device Shelf Model / Identifier Expiration Date Ser ial / Lot Prestige Lp Cervical Disc SPINE N/A: Neck Medtronic 11/0 10/2025 [id number] / Implanted: Qty: 1 on 01/30/2019 by Mal Mejia MD at [facility] ([facility]) 0 [id number] documented as of this encounter Results Not on filedocumented in this encounter Insurance Payer Benefit Plan / Subscriber ID Effective Phone Address T e Group Dates MEDICARE MEDICARE PART xxxxxxxxxxx 2020-Pr [phone] [address] simon A & B esent [phone] [id number] [place] [id number] [facility] [id number] 2019-Pre [address] NED[address] [facility] sent [phone] Supplement MEDICARE [place] SUPPLEMENT [place] [id number] documented as of this encounter
[2020-04-05 18:52] LABS: Basophils % 0.4 % (0-1.3); Hematocrit 39.8 % (39.6-49.0); Lymphocytes % 10.5 % (15.3-44.8); MPV 7.7 fL (7.6-11.3); RBC Red Blood Cell Count 4.64 M/uL (4.33-5.43)
[2020-04-05 18:59] LABS: Protime INR 1.2
[2020-04-05 19:19] LABS: ALT/SGPT 35 U/L (12-78); AST/SGOT 30 U/L (15-37); Albumin 2.6 g/dL (3.4-5.0); Alkaline Phosphatase 49 U/L (45-117); BUN Blood Urea Nitrogen 14 mg/dL (7-18); Bicarbonate 26 mmol/L (21-32); Bilirubin Direct 0.2 mg/dL (0-0.2); Bilirubin Total 0.7 mg/dL (0.2-1.0); Ferritin 1080.7 ng/mL (26-388); Glucose Level 115 mg/dL (74-106); Potassium 4.1 mmol/L (3.5-5.1); Protein, Total 7.7 g/dL (6.4-8.2); Sodium Level 143 mmol/L (136-145); Troponin (Emerg Dept Use Only) < 0.02 ng/mL (0.0-0.045)
--- NOTE | 2020-04-05 19:22 | RAD REPORT ---
EXAM DESCRIPTION: [place] Single View04/05/2020 6:36 pm CLINICAL HISTORY: sob COMPARISON: 2019 FINDINGS: Mild bilateral pulmonary opacities Heart is mildly enlarged IMPRESSION: These findings probably represent mild CHF
--- NOTE | 2020-04-05 20:52 | RAD REPORT ---
EXAM DESCRIPTION: CT - Chest For Pe Angio - 04/05/2020 8:33 pm CLINICAL HISTORY: Chest pain COMPARISON: 2019 TECHNIQUE: Dynamically enhanced axial 3 mm thick images of the chest were obtained during administra tion of <100> mL Isovue 370 IV contrast. Coronal and oblique reconstruction images were generated and reviewed. Exam utilizes a protocol for optimal evaluation of pulmonary arterial tree. Maximum intensity projections 3D imaging was utilized All CT scans are performed using dose optimization technique as appropriate and may include automated exposure control or mA/KV adjustment according to patient size. FINDINGS: The opacification of the pulmonary arteries suboptimal. A central pulmonary embolus is not seen. Evaluation of the peripheral pulmonary arteries is limited Main pulmonary artery is prominent which may indicate pulmonary arterial hypertension A thoracic aortic aneurysm is not noted. A pleural effusion is not seen. A pericardial effusion is not seen. Mild to moderate right and mild left lung ground-glass opacities IMPRESSION: No evidence of a central pulmonary embolus Mild to moderate right and mild left ground-glass opacities can be seen with Covid pneumonia or mild pulmonary edema
--- NOTE | 2020-04-05 21:21 | EDPHYS ---
Physician Documentation [facility] Name: Franck Espana Sr Age: 69 yrs Sex: Male : 1950 Arrival Date: 04/05/2020 Time: 17:08 Bed 26 Private MD: Jean Pierre Rincon T ED Physician Rom Valdez HPI: 04/05 18:34 This 69 yrs old Black Male presents to ER via Ambulatory with complaints of Shortness jr8 Of Breath - covid+. 18:34 The patient has shortness of breath with light activity. Onset: The symptoms/episode jr8 began/occurred gradually, 1 week(s) ago, and became persistent. Duration: The symptoms are intermittent. The patient's shortness of breath is aggravated by exertion. Associated signs and symptoms: Pertinent positives: non-productive cough, diarrhea. Severity of symptoms: At their worst the symptoms were moderate in the emergency department the symptoms are unchanged. The patient has not experienced similar symptoms in the past. The patient has been recently seen by a physician:. Patient stated that he started with COVID symptoms this past Sunday. Stated that he was tested on Sunday and was resulted as POSITIVE on . Stated that he has had shortness of breath with exertion, diarrhea, and cough that persists and now getting slightly worse. Currently on hydroxychloroquine and zinc. Historical: - Allergies: 17:18 No Known Allergies; ca1 - Home Meds: 17:18 valsartan oral oral [Active]; ca1 - PMHx: 17:18 hiatal hernia; Hypertension; ca1 - PSHx: 17:18 None; ca1 - Immunization history:: Adult Immunizations up to date. - Social history:: Smoking status: Patient denies any tobacco usage or history of. ROS: 18:34 Eyes: Negative for injury, pain, redness, and discharge, ENT: Negative for injury, jr8 pain, and discharge, Neck: Negative for injury, pain, and swelling, Cardiovascular: Negative for chest pain, palpitations, and edema, Back: Negative for injury and pain, MS/Extremity: Negative for injury and deformity, Skin: Negative for injury, rash, and discoloration, Neuro: Negative for headache, weakness, numbness, tingling, and seizure. 18:34 Respiratory: Positive for cough, dyspnea on exertion, shortness of breath. 18:34 Abdomen/GI: Positive for diarrhea, Negative for abdominal pain, nausea and vomiting. Exam: 18:34 Eyes: Pupils equal round and reactive to light, extra-ocular motions intact. Lids and jr8 lashes normal. Conjunctiva and sclera are non-icteric and not injected. Cornea within normal limits. Periorbital areas with no swelling, redness, or edema. ENT: Nares patent. No nasal discharge, no septal abnormalities noted. Tympanic membranes are normal and external auditory canals are clear. Oropharynx with no redness, swelling, or masses, exudates, or evidence of obstruction, uvula midline. Mucous membranes moist. Neck: Trachea midline, no thyromegaly or masses palpated, and no cervical lymphadenopathy. Supple, full range of motion without nuchal rigidity, or vertebral point tenderness. No Meningismus. Cardiovascular: Regular rate and rhythm with a normal S1 and S2. No gallops, murmurs, or rubs. Normal PMI, no JVD. No pulse deficits. Respiratory: Lungs have equal breath sounds bilaterally, clear to auscultation and percussion. No rales, rhonchi or wheezes noted. No increased work of breathing, no retractions or nasal flaring. Abdomen/GI: Soft, non-tender, with normal bowel sounds. No distension or tympany. No guarding or rebound. No evidence of tenderness throughout. Back: No spinal tenderness. No costovertebral tenderness. Full range of motion. Skin: Warm, dry with normal turgor. Normal color with no rashes, no lesions, and no evidence of cellulitis. MS/ Extremity: Pulses equal, no cyanosis. Neurovascular intact. Full, normal range of motion. Neuro: Awake and alert, GCS 15, oriented to person, place, time, and situation. Cranial nerves II-XII grossly intact. Motor strength 5/5 in all extremities. Sensory grossly intact. Cerebellar exam normal. Normal gait. Vital Signs: 17:13 BP 95 / 84; Pulse 80; Resp 20 S; Temp 98.7(O); Pulse Ox 92% on R/A; Weight 133.81 kg ca1 (R); Height 5 ft. 11 in. (180.34 cm) (R); 18:44 BP 103 / 73; Pulse 74; Resp 18; Pulse Ox 93% on R/A; Pain 0/10; ks7 19:00 BP 108 / 74; Pulse 72; Resp 18; Pulse Ox 98% on 2 lpm NC; Pain 0/10; ks7 19:30 BP 133 / 90; Pulse 71; Resp 18; Pulse Ox 97% on 2 lpm NC; Pain 0/10; ks7 20:00 BP 126 / 87; Pulse 72; Resp 18; Pulse Ox 95% on 2 lpm NC; Pain 0/10; ks7 20:15 BP 129 / 86; Pulse 74; Resp 18; Pulse Ox 95% on 3 lpm NC; Pain 0/10; ks7 21:53 BP 143 / 100; Pulse 73; Resp 20; Pulse Ox 94% on 3 lpm NC; Pain 0/10; ks7 22:00 BP 143 / 100; Pulse 85; Resp 18; Pulse Ox 97% on 2 lpm NC; Pain 0/10; ks7 22:30 BP 134 / 91; Pulse 72; Resp 18; Temp 98.3(O); Pulse Ox 95% on 3 lpm NC; Pain 0/10; ks7 23:00 BP 130 / 82; Pulse 77; Resp 18; Temp 98.2(O); Pulse Ox 97% on 3 lpm NC; Pain 0/10; ks7 23:39 BP 124 / 82; Pulse 72; Resp 18; Pulse Ox 96% on 3 lpm NC; Pain 0/10; ks7 04/06 00:02 BP 129 / 84; Pulse 72; Resp 18; Pulse Ox 95% on 3 lpm NC; Pain 0/10; ks7 04/05 17:13 Body Mass Index 41.14 (133.81 kg, 180.34 cm) ca1 04/05 21:53 pt walked to bathroom and back ks7 MDM: 17:37 Patient medically screened. jr8 20:58 Data reviewed: vital signs, nurses notes, lab test result(s), EKG, radiologic studies, jr8 CT scan, plain films. Data interpreted: Pulse oximetry: on room air is 93 %. Interpretation: borderline. Counseling: I had a detailed discussion with the patient and/or guardian regarding: the historical points, exam findings, and any diagnostic results supporting the discharge/admit diagnosis, lab results, radiology results. ED course: No large PE identifiable. CT consistent with COVID pneumonia. Oxygen saturation borderline. Will assess ability to ambulate off oxygen to determine if patient is safe to go home . 21:18 ED course: Patient dropped to 82% with ambulation. Will admit to Dr. Quintana . 04/05 17:36 Order name: BMP; Complete Time: 19:55 04/05 17:36 Order name: C-Reactive Protein; Complete Time: 19:55 04/05 17:36 Order name: CBC with Diff; Complete Time: 19:55 04/05 17:36 Order name: D-Dimer; Complete Time: 19:55 04/05 17:36 Order name: Ferritin; Complete Time: 19:55 04/05 17:36 Order name: Lactate; Complete Time: 19:55 04/05 17:36 Order name: LFT's; Complete Time: 19:55 04/05 17:36 Order name: Procalcitonin; Complete Time: 19:55 04/05 17:36 Order name: PT-INR; Complete Time: 19:55 04/05 17:36 Order name: Ptt, Activated; Complete Time: 19:55 04/05 17:36 Order name: Troponin (emerg Dept Use Only); Complete Time: 19:55 04/05 17:36 Order name: CXR XRAY; Complete Time: 19:55 04/05 17:36 Order name: EKG; Complete Time: 17:38 04/05 19:56 Order name: CT Chest For PE Angio; Complete Time: 20:55 04/05 17:36 Order name: Cardiac monitoring; Complete Time: 18:44 04/05 17:36 Order name: Droplet/Contact Precautions; Complete Time: 18:44 04/05 17:36 Order name: EKG - Nurse/Tech; Complete Time: 18:44 04/05 17:36 Order name: IV Start; Complete Time: 18:44 04/05 17:36 Order name: Labs collected and sent; Complete Time: 18:44 04/05 17:36 Order name: O2 Per Protocol; Complete Time: 18:44 04/05 17:36 Order name: O2 Sat Monitoring; Complete Time: 18:44 04/05 17:36 Order name: Urine Dipstick-Ancillary (obtain specimen) jr8 04/05 22:53 Order name: CONS Physician Consult EDMS Administered Medications: No medications were administered Disposition: 04/06 08:43 Co-signature as Attending Physician, Rom MELGAR I agree with the assessment and [facility] plan of care. Disposition: 04/05/20 21:21 Hospitalization ordered by Rl Quintana for Inpatient Admission. Preliminary diagnosis are SARS-associated coronavirus as the cause of diseases classified elsewhere, Acute respiratory failure with hypoxia. - Bed requested for Intensive Care Unit. - Status is Inpatient Admission. sg - Condition is Fair. - Problem is new. - Symptoms are unchanged. Signatures: Dispatcher [employer] EDMS Sandra Valladares RN RN mw Gay, Steven, RN RN sg Anderson, Corey, MD MD cha Roszak, Josh, PA PA jr8 Margarito, RENAY Beckman RN ca1 Corrections: (The following items were deleted from the chart) 04/05 22:53 21:21 Hospitalization Ordered by Rl Quintana for Inpatient Admission. Preliminary diagnosis is SARS-associated coronavirus as the cause of diseases classified elsewhere; Acute respiratory failure with hypoxia. Bed requested for Telemetry/MedSurg (Inpatient). Status is Inpatient Admission. Condition is Fair. Problem is new. Symptoms are unchanged. jr8 04/06 01:04 04/05 22:53 04/05/2020 21:21 Hospitalization Ordered by Rl Quintana for Inpatient sg Admission. Preliminary diagnosis is SARS-associated coronavirus as the cause of diseases classified elsewhere; Acute respiratory failure with hypoxia. Bed requested for Intensive Care Unit. Status is Inpatient Admission. Condition is Fair. Problem is new. Symptoms are unchanged. mw
--- NOTE | 2020-04-05 21:21 | ER ---
Nurse's Notes [facility] Name: Franck Espana Sr Age: 69 yrs Sex: Male : 1950 Arrival Date: 04/05/2020 Time: 17:08 Bed 26 Private MD: Jean Pierre Rincon T Diagnosis: SARS-associated coronavirus as the cause of diseases classified elsewhere;Acute respiratory failure with hypoxia Presentation: 04/05 17:13 Chief complaint: Patient states: SOB with exertion x 2-3 days. Cough and congestion, ca1 diarrhea and fatigue. Covid-19 positive and has been taking meds since . Coronavirus screen: Client denies travel out of the [place] in the last 14 days. congestion, cough unrelated to allergies, diarrhea, fatigue, shortness of breath, Client presents with at least one sign or symptom that may indicate coronavirus-19. Standard/surgical mask placed on the client. Provider contacted for isolation considerations. Client reports previous positive COVID test result. Date of collection: March 31, 2020 [facility] Staff notified of need for isolation. Ebola Screen: Patient negative for fever greater than or equal to 101.5 degrees Fahrenheit, and additional compatible Ebola Virus Disease symptoms Patient denies exposure to infectious person. Patient denies travel to an Ebola-affected area in the 21 days before illness onset. No symptoms or risks identified at this time. Initial Sepsis Screen: Does the patient meet any 2 criteria? No. Patient's initial sepsis screen is negative. Does the patient have a suspected source of infection? No. Patient's initial sepsis screen is negative. Risk Assessment: Do you want to hurt yourself or someone else? Patient reports no desire to harm self or others. Onset of symptoms was April 05, 2020. 17:13 Method Of Arrival: Ambulatory ca1 17:13 Acuity: DELORIS 3 ca1 Triage Assessment: 23:20 General: Behavior is calm, cooperative. General: Appears in no apparent distress. ks7 uncomfortable, obese, dyspnea on exertion. Respiratory: Reports shortness of breath on exertion Onset: The symptoms/episode began/occurred 3 days ago, the patient has moderate shortness of breath. Historical: - Allergies: 17:18 No Known Allergies; ca1 - Home Meds: 17:18 valsartan oral oral [Active]; ca1 - PMHx: 17:18 hiatal hernia; Hypertension; ca1 - PSHx: 17:18 None; ca1 - Immunization history:: Adult Immunizations up to date. - Social history:: Smoking status: Patient denies any tobacco usage or history of. Screenin:07 Abuse screen: Denies threats or abuse. Denies injuries from another. Nutritional ks7 screening: No deficits noted. Tuberculosis screening: No symptoms or risk factors identified. Fall Risk None identified. Assessment: 18:06 General: Appears uncomfortable. ks7 18:07 Reassessment: pt with positive covid test on Sun last week, taking azithromycin, comes ks7 in for SOB x 3 days. pt states sob is not worse but is not going away. dyspnea on exertion, states he is ok when sitting down. pt does not appear to be in distress. 18:44 Pain: Denies pain. ks7 18:44 Cardiovascular: Rhythm is regular Chest pain is denied. Respiratory: Airway is patent ks7 Respiratory effort is even, dyspnea on exertion. 18:57 Respiratory: Breath sounds are clear bilaterally. in right upper lobe and left upper ks7 lobe Breath sounds are diminished bilaterally. in left posterior lower lobe, right posterior middle lobe and right posterior lower lobe. 23:22 Reassessment: pt resting comfortably in room, no s/s of resp distress. pt has dyspnea ks7 with movement or exertion. vss stable, pt on 3L NC. Vital Signs: 17:13 BP 95 / 84; Pulse 80; Resp 20 S; Temp 98.7(O); Pulse Ox 92% on R/A; Weight 133.81 kg ca1 (R); Height 5 ft. 11 in. (180.34 cm) (R); 18:44 BP 103 / 73; Pulse 74; Resp 18; Pulse Ox 93% on R/A; Pain 0/10; ks7 19:00 BP 108 / 74; Pulse 72; Resp 18; Pulse Ox 98% on 2 lpm NC; Pain 0/10; ks7 19:30 BP 133 / 90; Pulse 71; Resp 18; Pulse Ox 97% on 2 lpm NC; Pain 0/10; ks7 20:00 BP 126 / 87; Pulse 72; Resp 18; Pulse Ox 95% on 2 lpm NC; Pain 0/10; ks7 20:15 BP 129 / 86; Pulse 74; Resp 18; Pulse Ox 95% on 3 lpm NC; Pain 0/10; ks7 21:53 BP 143 / 100; Pulse 73; Resp 20; Pulse Ox 94% on 3 lpm NC; Pain 0/10; ks7 22:00 BP 143 / 100; Pulse 85; Resp 18; Pulse Ox 97% on 2 lpm NC; Pain 0/10; ks7 22:30 BP 134 / 91; Pulse 72; Resp 18; Temp 98.3(O); Pulse Ox 95% on 3 lpm NC; Pain 0/10; ks7 23:00 BP 130 / 82; Pulse 77; Resp 18; Temp 98.2(O); Pulse Ox 97% on 3 lpm NC; Pain 0/10; ks7 23:39 BP 124 / 82; Pulse 72; Resp 18; Pulse Ox 96% on 3 lpm NC; Pain 0/10; ks7 08 00:02 BP 129 / 84; Pulse 72; Resp 18; Pulse Ox 95% on 3 lpm NC; Pain 0/10; ks7 04/05 17:13 Body Mass Index 41.14 (133.81 kg, 180.34 cm) ca1 04/05 21:53 pt walked to bathroom and back ks7 ED Course: 17:08 Patient arrived in ED. as 17:08 Jean Pierre Rincon MD is Private Physician. as 17:17 Triage completed. ca1 17:18 Arm band placed on right wrist. ca1 17:35 Servando Borrero PA is PHCP. jr8 17:35 Rom Valdez MD is Attending Physician. jr8 18:06 Bernadette Burleson, RENAY is Primary Nurse. ks7 18:37 CXR XRAY In Process Unspecified. EDMS 18:43 BMP Sent. ks7 18:43 C-Reactive Protein Sent. ks7 18:43 CBC with Diff Sent. ks7 18:43 D-Dimer Sent. ks7 18:43 Ferritin Sent. ks7 18:43 Lactate Sent. ks7 18:43 LFT's Sent. ks7 18:43 Procalcitonin Sent. ks7 18:43 PT-INR Sent. ks7 18:43 Ptt, Activated Sent. ks7 18:43 Troponin (emerg Dept Use Only) Sent. ks7 18:44 Resting quietly. ks7 18:44 Patient has correct armband on for positive identification. Bed in low position. Call ks7 light in reach. Side rails up X2. 18:44 No provider procedures requiring assistance completed. Inserted saline lock: 20 gauge ks7 in right antecubital area, using aseptic technique. 20:33 CT Chest For PE Angio In Process Unspecified. EDMS 21:20 Rl Quintana is Hospitalizing Provider. jr8 21:58 No apparent distress. Resting quietly. pt ambulated to bathroom independently. ks7 22:00 Resting quietly. Awaiting bed assignment. ks7 23:35 Patient admitted, IV remains in place. ks7 Administered Medications: No medications were administered Outcome: 21:21 Decision to Hospitalize by Provider. jr8 23:34 Admitted to ICU accompanied by nurse, via stretcher, room 3, with oxygen, Report called ks7 to Stefanie NIÑO 23:34 Condition: stable 23:34 Instructed on the need for admit. 04/06 01:04 Patient left the ED. sg Signatures: Dispatcher [employer] EDMS Maximino Ramos RN RN sg Fely Richards Josh, PA PA jr8 Karuna Pimentel RN RN ca1 Bernadette Burleson RN RN ks7 Corrections: (The following items were deleted from the chart) 04/05 17:18 17:13 Chief complaint: Patient states: SOB with exertion x 2-3 days. Cough and ca1 congestion, diarrhea and fatigue. ca1 18:47 18:07 Reassessment: pt with positive covid test on Sun last week, taking azithromycin, ks7 comes in for SOB x 3 days. pt states sob is not worse but is not going away. pt does not appear to be in distress. ks7 22:00 20:00 BP 143 / 100; Pulse 85bpm; Resp 18bpm; Pulse Ox 97% 2 lpm Nasal Cannula; Pain ks7 0/10; ks7
--- NOTE | 2020-04-05 22:44 | P.HP ---
Certification for Inpatient Patient admitted to: Observation With expected LOS: <2 Midnights Practitioner: I am a practitioner with admitting privileges, knowledge of patient current condition, hospital course, and medical plan of care. Services: Services provided to patient in accordance with Admission requirements found in Title 42 Section 412.3 of the Code of Federal Regulations Patient History Date of Service: 04/05/20 Reason for admission: Shortness of breath History of Present Illness: 69-year-old gentleman with a history of hypertension presented to the emergency department with a complaint of progressive shortness of breath and nonproductive cough. Patient states he tested positive for COVID 19 about 4 days ago. His PCP started him on hydroxychloroquine and Zinc tablets. He presented to the ED because his shortness of breath got worse. His chest CT in the ED shows bilateral ground-glass opacities suggestive of COVID pneumonia. Patient was hypoxic on room air with SaO2 of around 82%. His D-dimer and ferritin levels are elevated. Patient is admitted for further management of COVID pneumonia with hypoxia. Allergies No Known Allergies Allergy (Verified 12/19/18 15:21) Home Medications: Valsartan [Diovan] 1 tab PO DAILY 04/06/20 - Past Medical/Surgical History Diabetic: No -: Hiatal hernia -: HTN -: Bilateral knee repair of torn cartilage - Family History Father -: Heart disease Mother -: Diabetes - Social History Alcohol use: No CD- Drugs: No Caffeine use: No Review of Systems Other: Except as documented, all other systems reviewed and negative. Physical Examination - Physical Exam General: Alert, In no apparent distress HEENT: Mucous membr. moist/pink, Sclerae nonicteric Neck: Supple, JVD not distended Respiratory: Clear to auscultation bilaterally, Normal air movement Cardiovascular: No edema, Regular rate/rhythm, Normal S1 S2 Gastrointestinal: Normal bowel sounds, Soft and benign, Non-distended, No tenderness Musculoskeletal: No swelling, No erythema Integumentary: No rashes Neurological: Normal strength at 5/5 x4 extr, Cranial nerves 3-12 intact - Studies Laboratory Data (last 24 hrs) 04/05/20 18:35: PT 14.1 H, INR 1.20, APTT 26.8 04/05/20 18:35: WBC 9.4, Hgb 13.2 L, Hct 39.8, Plt Count 266 04/05/20 18:35: Sodium 143, Potassium 4.1, BUN 14, Creatinine 0.97, Glucose 115 H, Total Bilirubin 0.7, AST 30, ALT 35, Alkaline Phosphatase 49 Assessment and Plan - Problems (Diagnosis) (1) Pneumonia due to COVID-19 virus Current Visit: Yes Status: Acute (2) Acute respiratory failure with hypoxia Current Visit: Yes Status: Acute (3) Hypertension Current Visit: Yes Status: Acute - Plan Place under observation. Supplemental oxygen Oral dexamethasone, oral vitamin-D, zinc tablets, vitamin C. Pulmonary consult. Assess for home oxygen qualification on discharge. Continue ARB for hypertension. - Advance Directives Does patient have a Living Will: No Does patient have a Durable POA for Healthcare: No - Code Status/Comfort Care Code Status Assessed: Yes Code Status: Full Code
[2020-04-06 01:33] VITALS: BMI 41.8
[2020-04-06] MEDS ORDERED: ACETAMINOPHEN 500 MG TAB PO PRN (01:36)
[2020-04-06] MEDS ORDERED: Levofloxacin 750mg IV 750 MG/150 ML BAG IV SCH (02:00)
[2020-04-06 04:52] LABS: Urine Appearance CLEAR; Urine Bilirubin NEGATIVE (NEG); Urine Blood 1+ (NEG); Urine Color YELLOW; Urine Glucose NEGATIVE (NEG); Urine Protein 1+ (NEG); Urine Specific Gravity >=1.030 (1.005-1.030); Urine Urobilinogen 0.2 mg/dL (0.2-1.0); Urine pH 5.5 (5.0-7.0)
[2020-04-06 04:54] LABS: Urine Microscopic Reflex ORDER UMIC
[2020-04-06 05:16] LABS: Basophils % 0.3 % (0-1.3); Hematocrit 37.4 % (39.6-49.0); Lymphocytes % 10.6 % (15.3-44.8); MPV 7.8 fL (7.6-11.3); RBC Red Blood Cell Count 4.34 M/uL (4.33-5.43)
[2020-04-06 05:35] LABS: BUN Blood Urea Nitrogen 12 mg/dL (7-18); Bicarbonate 28 mmol/L (21-32); Glucose Level 112 mg/dL (74-106); Magnesium 2.3 mg/dL (1.8-2.4); Phosphorus 3.6 mg/dL (2.5-4.9); Potassium 4.1 mmol/L (3.5-5.1); Sodium Level 142 mmol/L (136-145)
[2020-04-06 06:08] LABS: Urine Bacteria <20 /HPF (NONE SEEN); Urine Culture Reflex Order NOT NEEDED; Urine RBC <5 /HPF (NONE SEEN)
--- NOTE | 2020-04-06 06:53 | P.PN ---
Subjective Date of Service: 04/06/20 Chief Complaint: Shortness of breath No event overnight. Patient has been comfortable 3 L of oxygen by nasal canula. No recorded fever. Physical Examination - Vital Signs Temperature: 97.2 F Blood Pressure: 131/88 Pulse: 76 Respirations: 23 Pulse Ox (%): 92 - Physical Exam General: Alert, In no apparent distress, Oriented x3 HEENT: Mucous membr. moist/pink Neck: Supple Respiratory: Clear to auscultation bilaterally, Normal air movement Cardiovascular: No edema, Regular rate/rhythm, Normal S1 S2 Gastrointestinal: Normal bowel sounds, Soft and benign, No tenderness Musculoskeletal: No swelling, No erythema Integumentary: No rashes Neurological: Normal strength at 5/5 x4 extr, Cranial nerves 3-12 intact - Studies Laboratory Data (last 24 hrs) 04/05/20 18:35: PT 14.1 H, INR 1.20, APTT 26.8 04/05/20 18:35: WBC 9.4, Hgb 13.2 L, Hct 39.8, Plt Count 266 04/05/20 18:35: Sodium 143, Potassium 4.1, BUN 14, Creatinine 0.97, Glucose 115 H, Total Bilirubin 0.7, AST 30, ALT 35, Alkaline Phosphatase 49 Assessment And Plan - Current Problems (Diagnosis) (1) Pneumonia due to COVID-19 virus Current Visit: Yes Status: Acute (2) Acute respiratory failure with hypoxia Current Visit: Yes Status: Acute (3) Hypertension Current Visit: Yes Status: Acute - Plan Continue current treatment Supplemental oxygen Oral dexamethasone, oral vitamin-D, zinc tablets, vitamin C. Pulmonary consult is pending Assess for home oxygen qualification on discharge.
[2020-04-06] MEDS: VITAMIN D 1000 UNIT TAB PO SCH (08:55)
[2020-04-06] MEDS: ASCORBIC ACID 500 MG TABLET PO SCH ×3 (08:55→20:37)
[2020-04-06] MEDS: ZINC SULFATE 220 MG CAP PO SCH (08:55)
[2020-04-06] MEDS: THIAMINE 200 MG/2 ML INJ IVP SCH (08:56)
[2020-04-06] MEDS: METHYLPREDNISOLONE 125 MG INJ IV SCH ×3 (08:56→16:56)
[2020-04-06] MEDS ORDERED: dexAMETHasone 4 MG TAB PO SCH (09:00)
[2020-04-06] MEDS ORDERED: ENOXAPARIN 40 MG/0.4 ML SQ SCH (09:00)
[2020-04-06 09:06] LABS: C-Reactive Protein 98.5 mg/L (<3.00); Ferritin 1002.1 ng/mL (26-388)
--- NOTE | 2020-04-06 11:02 | EKG ---
Test Date: 2020-04-05 Test Time: 20:12:57 Regional Coordinator: KRISTOFER MEASUREMENT RESULTS: Intervals: Rate: 73 GA: 154 QRSD: 98 QT: 396 QTc: 436 [place]: P: 48 GA: 154 QRS: 40 T: 18 INTERPRETIVE STATEMENTS: Normal sinus rhythm Normal ECG Compared to ECG 12/19/2018 11:16:15 No significant changes Electronically Signed On 04-06-20 11:01:03 CDT by Kulwant Marvin
--- NOTE | 2020-04-06 11:20 | P.CNS ---
Date of Consult: 04/06/20 Reason for Consult: Respiratory failure Chief Complaint: Pneumonia due to albert virus History of Present Illness: Patient is 69 years of age with a history of positive albert virus is admitted with progressive shortness of breath for the past few days was admitted with hypoxemia CT changes were very characteristic he is feeling a little better Allergies No Known Allergies Allergy (Verified 12/19/18 15:21) Home Medications: Valsartan [Diovan] 1 tab PO DAILY 04/06/20 - Past Medical/Surgical History Diabetic: No -: Hiatal hernia -: HTN -: Bilateral knee repair of torn cartilage -: c7 disc replacement -February 2019 -: wrist bone replacement 10 years ago -: low back surgery (15 YEARS AGO) - Family History Father Medical History: Heart disease Mother Medical History: Diabetes - Social History Alcohol use: No CD- Drugs: No Caffeine use: No Place of Residence: Home Review of Systems General: Weakness Respiratory: Shortness of Breath Physical Examination Temp Pulse Resp BP Pulse Ox 97.2 F 80 26 H 144/89 H 90 L 04/06/20 06:52 04/06/20 10:00 04/06/20 10:00 04/06/20 10:00 04/06/20 10:00 Laboratory Data (last 24 hrs) 04/05/20 18:35: PT 14.1 H, INR 1.20, APTT 26.8 04/05/20 18:35: WBC 9.4, Hgb 13.2 L, Hct 39.8, Plt Count 266 04/05/20 18:35: Sodium 143, Potassium 4.1, BUN 14, Creatinine 0.97, Glucose 115 H, Total Bilirubin 0.7, AST 30, ALT 35, Alkaline Phosphatase 49 - Problems (1) Pneumonia due to COVID-19 virus Current Visit: Yes Status: Acute Plan: Patient is 69 years of age admitted with pneumonia due to albert virus very classic changes on the CT scan patient's ferritin levels and CRPs still elevated I have increased the dose of his steroids change to p.o. Levaquin no evidence of sepsis labs reviewed increase Lovenox to b.i.d. dosage Solu-Medrol dose increased possible discharge tomorrow patient is currently satting 92% on 3 and 0.5 L on nasal cannula oxygen
[2020-04-06] MEDS: ENOXAPARIN 40 MG/0.4 ML SQ SCH (20:38)
[2020-04-07] MEDS: METHYLPREDNISOLONE 125 MG INJ IV SCH (01:46)
[2020-04-07 05:20] LABS: Absolute Lymphocytes (CBC) 0.7 K/uL (0.7-4.9); Basophils % 0.2 % (0-1.3); Hematocrit 38.4 % (39.6-49.0); Lymphocytes % 6.6 % (15.3-44.8); MPV 7.5 fL (7.6-11.3); RBC Red Blood Cell Count 4.48 M/uL (4.33-5.43)
[2020-04-07 05:35] LABS: BUN Blood Urea Nitrogen 22 mg/dL (7-18); Bicarbonate 25 mmol/L (21-32); Glucose Level 195 mg/dL (74-106); Potassium 4.4 mmol/L (3.5-5.1); Sodium Level 142 mmol/L (136-145)
[2020-04-07 06:52] LABS: Blood Morphology Comment NOT SEEN (NOT SEEN); Platelet Estimate ADEQ
[2020-04-07] MEDS: ENOXAPARIN 40 MG/0.4 ML SQ SCH (08:43)
[2020-04-07] MEDS: THIAMINE 200 MG/2 ML INJ IVP SCH (08:43)
[2020-04-07] MEDS: ASCORBIC ACID 500 MG TABLET PO SCH (08:43)
[2020-04-07] MEDS: VITAMIN D 1000 UNIT TAB PO SCH (08:44)
[2020-04-07] MEDS: ZINC SULFATE 220 MG CAP PO SCH (08:44)
[2020-04-07] MEDS ORDERED: predniSONE 20 MG TAB PO SCH (09:00)
[2020-04-07] MEDS ORDERED: VALSARTAN 160 MG TAB PO SCH (09:00)
--- NOTE | 2020-04-07 09:00 | P.DS ---
Admission Date: 04/06/20 Discharge Date: 04/07/20 Disposition: ROUTINE DISCHARGE Discharge Condition: FAIR Reason for Admission: Pneumonia due to albert virus - Problems (1) Pneumonia due to COVID-19 virus Current Visit: Yes Status: Acute (2) Acute respiratory failure with hypoxia Current Visit: Yes Status: Acute (3) Hypertension Current Visit: Yes Status: Acute Brief History of Present Illness: 69-year-old gentleman with a history of hypertension presented to the emergency department with a complaint of progressive shortness of breath and nonproductive cough. Patient states he tested positive for COVID 19 about 4 days ago. His PCP started him on hydroxychloroquine and Zinc tablets. He presented to the ED because his shortness of breath got worse. His chest CT in the ED shows bilateral ground-glass opacities suggestive of COVID pneumonia. Patient was hypoxic on room air with SaO2 of around 82%. His D-dimer and ferritin levels are elevated. Patient was admitted for further management of COVID pneumonia with hypoxia. Hospital Course: Patient was admitted to the intensive care unit, treated with oral dexamethasone, placed on supplemental oxygen therapy. Also treated with adjuvant medications including vitamin-D, zinc and ascorbic acid. His respiratory condition did not progress but remained stable. Patient was maintained on oxygen by nasal cannula throughout the hospital stay. He was seen and evaluated by pulmonology-Dr. Ni. Home oxygen has been arranged for the patient. He is deemed clinically stable for discharge. He is discharged with a 6 day course of oral prednisone. He has been informed to return to the ED for increased shortness of breath or when he feels he needs more oxygen. Vital Signs/Physical Exam: Temp Pulse Resp BP Pulse Ox 97.6 F 67 18 116/79 89 L 04/07/20 04:00 04/07/20 06:00 04/07/20 06:00 04/07/20 06:00 04/07/20 06:00 General: Alert, In no apparent distress HEENT: Mucous membr. moist/pink Neck: Supple, JVD not distended Respiratory: Clear to auscultation bilaterally, Normal air movement Cardiovascular: No edema, Regular rate/rhythm, Normal S1 S2 Gastrointestinal: Normal bowel sounds, Soft and benign, Non-distended, No tenderness Musculoskeletal: No swelling, No erythema Integumentary: No rashes Neurological: Normal strength at 5/5 x4 extr Laboratory Data at Discharge: WBC 10.0 K/uL (4.3-10.9) 04/07/20 05:04 Hgb 12.8 g/dL (13.6-17.9) L 04/07/20 05:04 Hct 38.4 % (39.6-49.0) L 04/07/20 05:04 Plt Count 314 K/uL (152-406) D 04/07/20 05:04 PT 14.1 SECONDS (9.5-12.5) H 04/05/20 18:35 INR 1.20 04/05/20 18:35 APTT 26.8 SECONDS (24.3-36.9) 04/05/20 18:35 Sodium 142 mmol/L (136-145) 04/07/20 05:04 Potassium 4.4 mmol/L (3.5-5.1) 04/07/20 05:04 BUN 22 mg/dL (7-18) H 04/07/20 05:04 Creatinine 0.98 mg/dL (0.55-1.3) 04/07/20 05:04 Glucose 195 mg/dL (74-106) H 04/07/20 05:04 Phosphorus 3.6 mg/dL (2.5-4.9) 04/06/20 04:47 Magnesium 2.3 mg/dL (1.8-2.4) 04/06/20 04:47 Total Bilirubin 0.7 mg/dL (0.2-1.0) 04/05/20 18:35 AST 30 U/L (15-37) 04/05/20 18:35 ALT 35 U/L (12-78) 04/05/20 18:35 Alkaline Phosphatase 49 U/L (45-117) 04/05/20 18:35 Home Medications: Valsartan [Diovan] 1 tab PO DAILY 04/06/20 Ascorbic Acid [Vitamin C*] 500 mg PO TID #90 tablet 04/07/20 Cholecalciferol (Vitamin D3) [Vitamin D 1000 Iu Tab*] 2,000 unit PO DAILY #60 tab 04/07/20 Zinc Sulfate [Zinc Sulfate*] 220 mg PO DAILY #30 cap 04/07/20 predniSONE [Prednisone*] 20 mg PO BID #12 tab 04/07/20 New Medications: predniSONE [Prednisone*] 20 mg PO BID #12 tab Ascorbic Acid [Vitamin C*] 500 mg PO TID #90 tablet Cholecalciferol (Vitamin D3) [Vitamin D 1000 Iu Tab*] 2,000 unit PO DAILY #60 tab Zinc Sulfate [Zinc Sulfate*] 220 mg PO DAILY #30 cap Patient Discharge Instructions: Continuous home O2. 3L by [place]. return to the ED for increased shortness of breath and/or when you feel you are needing more oxygen. Diet: AHA Activity: Ad neville Followup: Alfa Ni MD [ACTIVE - CAN ADMIT] - 1-2 Weeks Time spent managing pt's care (in minutes): 36
[2020-04-07 10:47] VITALS: O2SAT 90
[2020-04-07 13:23] VITALS: BP 129/87
[2020-04-07 14:34] VITALS: TEMP 98.5
== END 2020-04-07 14:15 | disposition home or self-care (01) | DRG 177 ==
LOC: ER 17:07 → 3RD-ICU 04-06 00:48 → OBSVTOIN 04-06 17:43
PROVIDERS: ADMIT Internal Medicine; ATTEND Internal Medicine
PROC: 8E0ZXY6 Isolation (ICD-10-PCS; principal; 2020-04-06)
DX: U07.1 COVID-19 (principal); J12.89 Other viral pneumonia; J96.01 Acute respiratory failure with hypoxia; I10 Essential (primary) hypertension; Z79.899 Other long term (current) drug therapy
CPT/HCPCS: 36415; 71045; 71275; 80048; 80076; 81003; 81015; 82728; 82947; 83605; 83735; 84100; 84145; 84484; 85025; 85379; 85610; 85730; 86140; 93005; 94760; 99285; G0378; J1650; J2930; J3411; J7512; J8540; Q9967